=== PATIENT | male | born 1965 | race African-American/Black ===

== ENCOUNTER 2019-04-24 22:46 | Emergency (ER) | payer OTHER ==
[2019-04-24 22:53] VITALS: BP 127/84; PULSE 113; BMI 33.4
[2019-04-24] MEDS ORDERED: LORazepam 2 MG/ML SDV VIAL ONE (23:10)
--- NOTE | 2019-04-24 23:18 | PDOC ---
Attending Attestation - Resident Resident Name: Adalid Altman - ED Attending Attestation I have performed the following: I have examined & evaluated the patient, The case was reviewed & discussed with the resident, I agree w/resident's findings & plan - HPI HPI: 04/24/19 23:17 Pt has a hx of brain tumor and seizures and states that he had a seizure today SODA FLAKER - Physicial Exam PE: 04/25/19 00:05 Pt has old surgical scars on his scalp from his brain tumor surgery HEENT normal heart [id number] lungs CTA B abd soft NT ND flank no tenderness no edema of the legs - Medical Decision Making 04/25/19 02:31 WBC is elevated; pt has a CK elevation. 04/25/19 06:54 Pt wants to sign AMA; he states that he will follow with his PMD. Heart Score/ECG Review - ECG Intrepretation Rhythm: Regular Rhythm - [place]: Normal - P and IA Prominent R with upright T in V1 (true posterior OK): No Delta Wave(s) Present: No WPW: No - QRS Poor R Wave Progression: No Q Wave Present: No - ST and T Early Repolarization: No Non Specific ST-T Wave changes: No Flattened T Waves: No Prolonged Q-T Interval: No - ECG Impressions Normal ECG: Yes Non-specific ST Elevation: No Ischemic Changes: No Bradycardia: No Torsades connie Pointes: No WPW: No
[2019-04-24] MEDS ORDERED: levETIRAcetam 500 MG/5 ML INJECTION VIAL IVPB ONE (23:49)
--- NOTE | 2019-04-24 23:55 | PDOC ---
*Physical Exam - Vital Signs Last Vital Signs Temp Pulse Resp BP Pulse Ox 113 H 18 127/84 98 04/24/19 22:50 04/24/19 22:50 04/24/19 22:50 04/24/19 22:50 - Physical Exam 04/25/19 02:12 Patient refuses to stay in the hospital. Per the patient, he states he can take his medications at home and wants a prescription of brand name keppra to his pharmacy. Per the patient, he says, when asked why he doesnt want the head CT, states "my head is fine". The patient states he will follow up with his primary medical doctor within 1 week as advised. The patient was told that leaving the hospital before having neurology evaluation to confirm he is at an appropriate medication dosage. The patient is alert and oriented x3 and is of sound mind. ED Treatment Course - LABORATORY CBC & Chemistry Diagram: 04/25/19 00:05 04/25/19 00:05 Medical Decision Making - Medical Decision Making 04/25/19 02:15 Patient states he will use an Uber paid for by his niece to get back to his home. Denies that he will drive home. Discharge - Discharge Information Problems reviewed: Yes Clinical Impression/Diagnosis: Seizure Disposition: AGAINST MEDICAL ADVICE - Additional Discharge Information Prescriptions: levETIRAcetam [Keppra -] 1,000 mg PO BID #14 tablet - Follow up/Referral Referrals: Soledad Coyne MD [Primary Care Provider] - - Patient Discharge Instructions - Post Discharge Activity
--- NOTE | 2019-04-25 00:04 | PDOC ---
History of Present Illness - General Chief Complaint: Seizure Stated Complaint: SEIZURE Time Seen by Provider: 04/24/19 23:17 History Source: Patient Exam Limitations: No Limitations - History of Present Illness Initial Comments: 04/24/19 23:55 53 yo male pmh asthma and seizures presents to the ED after 6 episodes of seizures today. During evaluation pt became verbally unresponsive, eyes open however looking to the left and shaking. Episode lasted 30 seconds, pt returned to baseline mentation immediately, AOX3, no complaints of headaches. Pt admits to being aware of all events during the episode. Pt states seizures started 06/2018 after "drinking to much coffee" and believes drinking gatorade today was the cause of his seizures. Pt followed by Neurology at [facility] who prescribe Keppra 1000mg BID, pt states he is taking his medication as prescribed Denies falling/hitting his head, BANERJEE, neck pain, recent illness, F/C/N/V, CP, SOB , abdominal pain, changes in bowel or bladder habits Past History - Past Medical History Allergies/Adverse Reactions: Allergies Allergy/AdvReac Type Severity Reaction Status Date / Time phenytoin [From Dilantin] Allergy Unknown Verified 04/25/19 00:23 liquid steroid Allergy Uncoded 04/25/19 00:26 Home Medications: Ambulatory Orders levETIRAcetam [Keppra -] 1,000 mg PO BID #14 tablet 04/25/19 - Psycho Social/Smoking Cessation Hx Smoking History: Unknown if ever smoked Have you smoked in the past 12 months: No Information on smoking cessation initiated: No Hx Alcohol Use: No Drug/Substance Use Hx: No Review of Systems - Review of Systems Constitutional: Yes: See HPI HEENTM: Yes: See HPI Respiratory: Yes: See HPI Cardiac (ROS): Yes: See HPI ABD/GI: Yes: See HPI : Yes: See HPI Musculoskeletal: Yes: See HPI Integumentary: Yes: See HPI Neurological: Yes: See HPI *Physical Exam - Vital Signs Last Vital Signs Temp Pulse Resp BP Pulse Ox 113 H 18 127/84 98 04/24/19 22:50 04/24/19 22:50 04/24/19 22:50 04/24/19 22:50 - Physical Exam General Appearance: Yes: Nourished, Appropriately Dressed. No: Apparent Distress HEENT: positive: EOMI, JAZMYN, Normal Voice, Hearing Grossly Normal, Other (no tongue bitting). negative: Scleral Icterus (R), Scleral Icterus (L), Excessive drooling Respiratory/Chest: positive: Lungs Clear, Normal Breath Sounds. negative: Respiratory Distress, Accessory Muscle Use, Rapid RR, Crackles, Rales, Rhonchi, Stridor, Wheezing Cardiovascular: positive: S1, S2, Tachycardia. negative: Edema, JVD, Murmur Vascular Pulses: Dorsalis-Pedis (R): 3+, Doralis-Pedis (L): 3+ Gastrointestinal/Abdominal: positive: Flat, Soft. negative: Protuberent, Distended, Guarding, Rebound, Tenderness Musculoskeletal: negative: CVA Tenderness Extremity: positive: Normal Capillary Refill, Normal Inspection Integumentary: positive: Normal Color, Dry, Warm Neurologic: positive: herb digger II-XII NML intact, Fully Oriented, Alert, Normal Mood/ Affect, Normal Response, Motor Strength 5/5. negative: Facial Droop, Numbness, Sensory Deficit, Finger to Nose (normal), Confused, Disoriented ED Treatment Course - LABORATORY CBC & Chemistry Diagram: 04/25/19 00:05 04/25/19 00:05 Medical Decision Making - Medical Decision Making 04/25/19 00:04 53 yo male pmh asthma and seizures presents to the ED after 6 episodes of seizures today. During evaluation pt became verbally unresponsive, eyes open however looking to the left and shaking. Episode lasted 30 seconds, pt returned to baseline mentation immediately, AOX3, no complaints of headaches. Pt admits to being aware of all events during the episode. Pt states seizures started 06/2018 after "drinking to much coffee" and believes drinking gatorade today was the cause of his seizures. Pt followed by Neurology at [facility] who prescribe Keppra 1000mg BID, pt states he is taking his medication as prescribed Denies falling/hitting his head, BANERJEE, neck pain, recent illness, F/C/N/V, CP, SOB , abdominal pain, changes in bowel or bladder habits vitals show elevated HR Pt returned to baseline mentation immediately and admits to being completely aware throught episode, no tongue bitting or urination on himself Will do labs including keppra level, lactic and CPK, Pt will be given keppra load Labs [facility] Discharge - Discharge Information Problems reviewed: Yes Clinical Impression/Diagnosis: Seizure Disposition: AGAINST MEDICAL ADVICE - Additional Discharge Information Prescriptions: levETIRAcetam [Keppra -] 1,000 mg PO BID #14 tablet - Follow up/Referral Referrals: Soledad Coyne MD [Primary Care Provider] - - Patient Discharge Instructions - Post Discharge Activity
[2019-04-25 00:42] LABS: BASO % 0.3 % (0-2.0); EOS % 0.4 % (0-4.5); HEMATOCRIT 45.9 % (35.4-49); HEMOGLOBIN 15.2 GM/dL (11.7-16.9); LYMPH % 10.1 % (8-40); MCH 30.2 pg (25.7-33.7); MEAN CELL VOLUME 91.4 fl (80-96); MONO % 4.6 % (3.8-10.2); NEUT % 84.6 % (42.8-82.8); PLATELET COUNT 249 K/MM3 (134-434); RBC 5.03 M/mm3 (4.00-5.60); RDW 13.4 % (11.9-15.9); WHITE BLOOD COUNT 13.1 K/mm3 (4.0-10.0)
[2019-04-25 00:58] LABS: INR 1.09 (0.83-1.09); PROTHROMBIN TIME (PATIENT) 12.9 SEC (9.7-13.0)
[2019-04-25 01:31] LABS: ALBUMIN 4.1 g/dl (3.4-5.0); ALK PHOS 87 U/L (45-117); ANION GAP 8 MMOL/L (8-16); BILIRUBIN,TOTAL 0.4 mg/dL (0.2-1); BLOOD UREA NITROGEN 24.2 mg/dL (7-18); CALCIUM 9.1 mg/dL (8.5-10.1); CHLORIDE 109 mmol/L (98-107); CO2 23 mmol/L (21-32); CREATININE 1.3 mg/dL (0.55-1.3); GLUCOSE,RANDOM 91 mg/dL (74-106); POTASSIUM 4.6 mmol/L (3.5-5.1); SGOT/AST 54 U/L (15-37); SGPT/ALT 41 U/L (13-61); SODIUM 141 mmol/L (136-145)
[2019-04-25] MEDS ORDERED: SODIUM CHLORIDE 1,000 ML IV STA (01:40)
--- NOTE | 2019-04-25 12:24 | EKG ---
Test Reason : Blood Pressure : / mmHG Vent. Rate : 084 BPM Atrial Rate : 084 BPM P-R Int : 172 ms QRS Dur : 106 ms QT Int : 354 ms P-R-T Axes : 077 061 130 degrees QTc Int : 418 ms NORMAL SINUS RHYTHM INCOMPLETE RIGHT BUNDLE BRANCH BLOCK NONSPECIFIC ST AND T WAVE ABNORMALITY ABNORMAL ECG NO PREVIOUS ECGS AVAILABLE Confirmed by BECKY GONSALEZ MD ([id number]) on 04/25/2019 12:23:55 PM Referred By: Confirmed By:BECKY GONSALEZ MD
== END 2019-04-25 03:09 | disposition left against medical advice (07) ==
LOC: JER 22:46
PROC: 3E033GC Introduction of Other Therapeutic Substance into Peripheral Vein, Percutaneous Approach (ICD-10-PCS; principal; 2019-04-24)
DX: G40.909 Epilepsy, unspecified, not intractable, without status epilepticus (principal); R74.8 Abnormal levels of other serum enzymes; Z88.8 Allergy status to other drugs, medicaments and biological substances
CPT/HCPCS: 36415; 80053; 80177; 82550; 82553; 83605; 84484; 85025; 85610; 93005; 93010; 96374; 99283-25

== ENCOUNTER 2023-09-15 14:48 | Emergency (ER) | payer OTHER ==
[2023-09-15 15:13] VITALS: BP 132/84; BMI 41.0
== END 2023-09-15 15:13 | disposition left against medical advice (07) ==
LOC: JER 14:48
DX: Z53.21 Procedure and treatment not carried out due to patient leaving prior to being seen by health care provider (principal)
CPT/HCPCS: 99281-25